=== PATIENT | male | born 2000 | race Caucasian/White ===

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

== ENCOUNTER 2020-10-19 15:46 | Emergency (ER) | payer BC ==
[2020-10-19 23:09] LABS: SARS-CoV-2 PCR by NAA DETECTED (NotDetected)
== END 2020-10-19 16:55 | disposition home or self-care (01) ==
LOC: ERS 15:46
DX: U07.1 COVID-19 (principal)
CPT/HCPCS: 87635; 99283; U0003; U0005

== ENCOUNTER 2023-09-08 07:10 | Emergency (ER) | payer BC ==
[2023-09-08] MEDS ORDERED: Ondansetron PF 4 MG/2 ML Vial ONE (07:30)
[2023-09-08 07:38] LABS: #Basophils 0.1 thou/uL (0.0-0.2); #Monocytes 1.1 thou/uL (0.11-0.59); #Neutrophils 17.5 thou/uL (1.40-6.50); %Basophils 0.3 % (0.0-1.0); %Eosinophils 0.2 % (0.0-10.0); %Lymphocytes 4.7 % (21.0-51.0); %Monocytes 5.4 % (0.0-10.0); %Neutrophils 88.9 % (42.0-75.0); Hematocrit 47.4 % (42.0-52.0); Mean Corpuscular HGB CONC 35.9 g/dL (32.0-36.0); Mean Corpuscular Hemoglobin 33.2 pg (27.0-31.0); Mean Corpuscular Volume 92.6 fl (78.0-98.0); Mean Platelet Volume 12.5 fL (7.4-10.4); Platelet Count 218 10x3/uL (130-400); RBC Distribution Width 12.3 % (11.5-14.5); Red Blood Cell (RBC) Count 5.12 mill/uL (4.70-6.10); White Blood Cell (WBC) Count 19.7 10x3/uL (4.8-10.8)
[2023-09-08] MEDS ORDERED: diphenhydrAMINE 50 MG/ML VIAL ONE (08:00)
[2023-09-08] MEDS ORDERED: Metoclopramide HCl 10 MG/2 ML VIAL ONE (08:00)
[2023-09-08] MEDS ORDERED: Famotidine/PF 20 mg/2ml Vial ONE (08:01)
[2023-09-08 08:06] LABS: ALT (SGPT) 22 U/L (8-55); AST (SGOT) 18 U/L (5-34); Albumin 4.7 g/dL (3.5-5.0); Alkaline Phosphatase 82 U/L (40-110); Anion Gap 19 mmol/L (10-20); BUN (Urea Nitrogen) 18 mg/dL (8.9-20.6); Calc. Creatinine Clearance 0 mL/min (70-130); Carbon Dioxide 19 mmol/L (22-29); Chloride 105 mmol/L (98-107); Estimated GFR 124; Globulin 3.2 g/dL (2.4-3.5); Glucose 150 mg/dL (70-105); Lipase 14 U/L (8-78); Potassium 3.4 mmol/L (3.5-5.1); Protein, Total 7.9 g/dL (6.0-8.3); Sodium 140 mmol/L (136-145)
[2023-09-08] MEDS ORDERED: Haloperidol Lactate 5 MG/ML VIAL ONE (08:51)
[2023-09-08] MEDS ORDERED: Iopamidol-370 76% 500 ML MDV (1 ML CHARGE) ONE (09:28)
== END 2023-09-08 10:34 | disposition home or self-care (01) ==
LOC: ERS 07:10
DX: R19.7 Diarrhea, unspecified (principal)
CPT/HCPCS: 74177; 80053; 83690; 85025; 93005; 96372; 96374; 96375; J1200; J1630; J2405; J2765; Q9967; S0028